=== PATIENT | female | born 1950 | race Caucasian/White ===

== ENCOUNTER 2019-03-03 08:42 | Emergency (ER) | payer OTHER ==
[~2019-03-03] VITALS: Ht 162.6 cm; Wt 69.4 kg
[2019-03-03] MEDS ORDERED: LEVOTHYROXINE25 MCG (09:29)
[2019-03-03] MEDS ORDERED: COZAAR25 MG (09:29)
[2019-03-03] MEDS ORDERED: CRESTOR5 MG (09:30)
[2019-03-03] MEDS ORDERED: ARICEPT23 MG (09:30)
[2019-03-03] MEDS ORDERED: AMOX-CLAV 875-1 EACH PO (12:36)
[2019-03-03] MEDS ORDERED: INTESTINEX680 M1 PO (12:36)
== END 2019-03-03 12:53 | disposition home or self-care (01) ==
LOC: ER 08:42
DX: S61.452A Open bite of left hand, initial encounter (principal); L03.114 Cellulitis of left upper limb; W55.01XA Bitten by cat, initial encounter; Y93.89 Activity, other specified; Y92.830 Public park as the place of occurrence of the external cause; Y99.8 Other external cause status

== ENCOUNTER 2022-12-15 15:06 | Outpatient (CLI) | payer OTHER ==
[~2022-12-15 15:06] MED LIST: AMOX-CLAV 875-1 EACH PO; ARICEPT23 MG; COZAAR25 MG; CRESTOR5 MG; INTESTINEX680 M1 PO; LEVOTHYROXINE25 MCG
== END 2022-12-15 15:07 | disposition home or self-care (01) ==
LOC: RAD 15:06
DX: S52.572A Other intraarticular fracture of lower end of left radius, initial encounter for closed fracture (principal); S62.635A Displaced fracture of distal phalanx of left ring finger, initial encounter for closed fracture; S62.634A Displaced fracture of distal phalanx of right ring finger, initial encounter for closed fracture; S52.135A Nondisplaced fracture of neck of left radius, initial encounter for closed fracture; S52.134A Nondisplaced fracture of neck of right radius, initial encounter for closed fracture